=== PATIENT | male | born 2000 | race Asian ===

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

== ENCOUNTER 2022-08-08 20:23 | Emergency (ER) | payer MEDICAID ==
[~2022-08-08] VITALS: Ht 177.8 cm; Wt 63.5 kg
[2022-08-08 20:28] VITALS: BP_SYST 127
--- NOTE | 2022-08-08 20:33 | NUR ---
Patient triaged and placed in waiting room. VSS and patient appears in no acute distress at this time. Accompanied by FAMILY, awaiting available bed, and MD notified of need for MSE.
[2022-08-08] MEDS ORDERED: predniSONE 20 MG TABLET PO ONE (21:45)
[2022-08-08] MEDS ORDERED: KETOROLAC TROMETHAMINE 15 MG VIAL IM ONE (21:45)
[2022-08-08] MEDS ORDERED: methocarbamoL 500 MG TABLET PO ONE (21:45)
[2022-08-08] MEDS ORDERED: METH-634 PO (21:45)
[2022-08-08] MEDS ORDERED: LIDO1ADH77 TD (21:45)
[2022-08-08] MEDS ORDERED: IBUP-1969 PO (21:45)
[2022-08-08] MEDS ORDERED: PRED20TA PO (21:45)
[2022-08-08 21:54] VITALS: BP_SYST 118
--- NOTE | 2022-08-08 21:54 | NUR ---
Patient given written and verbal discharge instructions and verbalizes understanding. ER MD discussed with patient the results and treatment provided. Patient in stable condition. ID arm band removed. Rx of IBUPROPHEN,LIDOCAINE,ROBAXIN,PREDNISONE given. Patient educated on pain management and to follow up with PMD. Pain Scale . Opportunity for questions provided and answered. Medication side effect fact sheet provided.
== END 2022-08-08 21:54 | disposition home or self-care (01) ==
LOC: SED 20:23
DX: M54.17 Radiculopathy, lumbosacral region (principal); Z79.899 Other long term (current) drug therapy
CPT/HCPCS: 99283; 96372; J7512; J1885